=== PATIENT | male | born 1965 | race Caucasian/White ===

== ENCOUNTER 2016-08-17 16:11 | Emergency (ER) ==
--- NOTE | 2016-08-17 17:13 | PROVIDER DOCUMENTATION ---
[facility] General - General Source: patient - History of Present Illness-[facility] General [facility] Location: reports: throat Quality of Pain: reports: aching Severity: reports: mild Onset/Duration: reports: last night Timing: reports: still present, intermittent Prearrival Treatment: Initiated no prearrival treatment Associated Symptoms: reports: cough, sore throat, other (body aches) Locality of Occurance: Home Similar Symptoms Previously?: Yes Recently seen or treated by another doctor?: No - Throat/Dental Throat/Dental Problem Symptoms: reports: sore throat <Elicia Long - Last Filed: 08/17/16 17:09> <Rene Olivares - Last Filed: 08/17/16 17:33> - General Chief Complaint: Flu Symptoms Stated Complaint: BODYACHES/SORE THROAT/COUGH Time Seen by Provider: 08/17/16 16:51 Allergies/Adverse Reactions: Patient Allergies Allergy/AdvReac Type Severity Reaction Status Date / Time Penicillins Allergy HIVES Verified 03/14/16 18:37 Home Medications: Home Medication List Medication Instructions Recorded Confirmed Last Taken Type Cetirizine [Zyrtec] 10 mg PO DAILY #20 tablet 08/17/16 Unknown Rx Levofloxacin [Levaquin] 750 mg PO DAILY #10 tablet 08/17/16 Unknown Rx Methylprednisolone [Medrol Dosepak] 4 mg PO DIRECTED #1 package 08/17/16 Unknown Rx Phenylephrine HCl/Cod/Prometh 2 tsp PO Q6H PRN PRN #120 syrup 08/17/16 Unknown Rx [Phenergan Vc-Codeine Syrup] - History of Present Illness-[facility] General Nature of Presenting Problem: Pt is 51 y/o M presents to the ED with sore throat, cough and body aches. Pt states symptoms started yesterday. Pt denies F (Elicia Long) Review of Systems - Adult - REVIEW OF SYSTEMS - ADULT Constitutional: denies: chills, fever Eyes: denies: blurred vision, double vision Ears, Nose, Mouth & Throat: reports: throat pain. denies: ear pain, nose pain Cardiovascular: denies: chest pain, heart murmur, irregular heart rate Respiratory: reports: cough. denies: shortness of breath, wheezing Gastrointestinal: denies: abdominal pain, diarrhea, nausea, vomiting Genitourinary: denies: dysuria, hematuria Musculoskeletal: reports: muscle aches. denies: bone pain, joint pain, neck pain Integumentary: denies: hives, itching Neurological: denies: dizziness/vertigo, headache/migraines Psychiatric: reports: no symptoms reported Endocrine: reports: no symptoms reported Hematologic/Lymphatic: reports: no symptoms reported Allergic/Immunologic: reports: no symptoms reported All Other Systems: Reviewed and Negative <Erika Longomi - Last Filed: 08/17/16 17:09> Past History - Adult - PAST MEDICAL HISTORY-ADULT Review of Records: reports: Nursing Assessment Review, Medications Reviewed, Social history reviewed & non-contributory. Major Childhood Illnesses: reports: denies history Cardiovascular: reports: denies history Respiratory: reports: denies history Gastrointestinal: reports: denies history Obstetrical/Gynecological: reports: denies history Genitourinary: reports: denies history Musculoskeletal: reports: denies history Neurological: reports: denies history Endocrine/Immune: reports: denies history Other Conditions: reports: denies history - PRIOR SURGERIES/PROCEDURES Surgical/Procedure History: reports: none - PRIOR HOSPITALIZATIONS Prior Hospitalizations: reports: none - IMMUNIZATION STATUS Childhood Immunizations: See Nurse Assessment Flu Vaccine: See Nurse Assessment - FAMILY HISTORY Family History: reviewed, not pertinent - SOCIAL HISTORY Smoking: cigarettes, less than 1 pack/day Provider spent 3-5 mins advising pt. on dangers of tobacco.: discussed smoking cessation Substance Use: alcohol Alcohol Use Frequency: occasionally Living Situation: family <Erika Longomi - Last Filed: 08/17/16 17:09> Physical Exam- EENT - Physical Exam EENT Initial Vital Signs Reviewed: Yes General Appearance: appears well, alert, no apparent distress Eye Exam: bilateral eye: normal inspection, PERRL, EOMI Ear Exam: bilateral ear: auricle normal, canal normal, TM red Nasal Exam: normal inspection Throat Exam: normal mouth inspection, other (pharynx redness) Neck: non-tender, full range of motion, supple, normal inspection Respiratory: chest non-tender, lungs clear, normal breath sounds, no pleuratic chest pain, no respiratory distress, no accessory muscle use Cardiovascular: normal peripheral pulses, regular rate, rhythm, no edema, no gallop, no JVD, no murmur Abdominal Exam: normal bowel sounds, non tender, soft, no organomegaly, no pulsatile mass Lymphatic: no adenopathy Back Exam: normal inspection, no CVA tenderness, no vertebral tenderness Extremity: normal range of motion, non-tender, normal gait, normal inspection, no pedal edema, no calf tenderness Integumentary: normal color, normal turgor, warm/dry Neurologic: grossly normal Psych/Mental Status: normal mood/affect, oriented x 3 <Elicia Long - Last Filed: 08/17/16 17:09> Progress <Elicia Long - Last Filed: 08/17/16 17:09> - XRAY 1 XRAY Study: Chest XRAY Interpretation: COPD ([place]) <Rene Olivares - Last Filed: 08/17/16 17:33> - PLAN OF CARE/RESULTS Progress/Plan/Lab Results: Discussed results and plan of care with patient. Patient agrees with plan and verbalizes understanding. Vital Signs Temp Pulse Resp BP Pulse Ox 08/17/16 16:19 98 F 79 18 120/74 98 Penicillins Allergy (Verified 03/14/16 18:37) HIVES No Home Medications 08/17/16 Laboratory 08/17/16 08/17/16 16:21 16:21 Influenza A (Rapid) NEGATIVE Influenza B (Rapid) NEGATIVE Group A Strep Rapid NEGATIVE Orders Category Date Time Status CHEST-2 VIEWS [RAD] Stat Exams 08/17/16 17:06 Taken DIRECT [DIRECT STREP PL] Stat Lab 08/17/16 16:[address] Stat Lab 08/17/16 16:21 Completed Laboratory Tests 08/17/16 08/17/16 16:21 16:21 Influenza A (Rapid) NEGATIVE Influenza B (Rapid) NEGATIVE Group A Strep Rapid NEGATIVE (Rene Olivares) Departure <Elicia Long - Last Filed: 08/17/16 17:09> - Departure Time of Disposition Order: 17:31 Certified Medical Emergency: Emergent <Rene Olivares - Last Filed: 08/17/16 17:33> - Departure DIAGNOSIS: Sinus infection Qualifiers: Sinusitis location: frontal Chronicity: acute Recurrence: not specified as recurrent Qualified Code(s): J01.10 - Acute frontal sinusitis, unspecified Disposition: HOME 01 Condition: Stable Additional Instructions: Follow up with primary care physician Take medications as directed Return to ED for any concerns or worsening of symptoms ED Follow Up Instructions: You have been treated by a care provider in the Emergency Department. These instructions are being provided to you so you can have an understanding of how to care for yourself upon discharge. Upon discharge from the Emergency Department, you are responsible for making arrangements for follow-up care by a physician of your choice. Take all prescribed medications as directed. Return to the Emergency Department immediately for any new or worsening symptoms. You may call the Physician Referral phone number at [phone] to obtain a list of Physicians who are taking new patients. Prescriptions: Levofloxacin [Levaquin] 750 mg PO DAILY #10 tablet Methylprednisolone [Medrol Dosepak] 4 mg PO DIRECTED #1 package Phenylephrine HCl/Cod/Prometh [Phenergan Vc-Codeine Syrup] 2 tsp PO Q6H PRN PRN #120 syrup PRN Reason: Cough Cetirizine [Zyrtec] 10 mg PO DAILY #20 tablet Attestation - Scribe Verification/Attestation Scribe:: Elicia Long Acting as Scribe for:: Rene Olivares Scribe documention review:: This chart was documented by a scribe and accurately reflects the service the provider performed and the decisions made by the provider. <Elicia Long - Last Filed: 08/17/16 17:09> - Physician/ MARK Attestation Patient care was provided by Advanced Practice Provider:: Yes Advanced Practice Provider:: Rene Olivares Advanced Practice Provider documentation review:: The Mid-level provider documentation, treatment plan and medical decision making was reviewed by the physician who agrees with all treatment and medical decision making by the P. <Rene Olivares - Last Filed: 08/17/16 17:33> Physician Attestation
[2016-08-17] MEDS ORDERED: ZYRTEC PO ONE (17:31)
[2016-08-17] MEDS ORDERED: LEVAQUIN PO ONE (17:31)
[2016-08-17] MEDS ORDERED: DECADRON IM ONE (17:31)
--- NOTE | 2016-08-17 18:16 | Diag Imaging Result Document ---
PROCEDURE NAME: CHEST-2 VIEWS - 08/17/2016 FRONTAL AND LATERAL CHEST, 2 VIEWS FINDINGS: The lungs are hyperexpanded. The heart is not enlarged. The pulmonary vessels are small. There is a granuloma in the left apex. No pleural effusions. No pneumonia. IMPRESSION: 1. There are no infiltrates. 2. The patient may have emphysema.
[2016-08-17 18:44] VITALS: BP 144/72
== END 2016-08-17 18:00 | disposition home or self-care (01) ==
LOC: P.ED 16:11
DX: J01.10 Acute frontal sinusitis, unspecified (principal); J02.9 Acute pharyngitis, unspecified; R05 Cough; M79.1 Myalgia; F17.210 Nicotine dependence, cigarettes, uncomplicated; Z71.6 Tobacco abuse counseling
CPT/HCPCS: 71020; 87081; 87430; 87804